=== PATIENT | male | born 1980 | race Hispanic/Latino ===

== ENCOUNTER 2017-12-31 16:13 | Emergency (ER) | payer OTHER | END 2017-12-31 17:10 | disposition home or self-care (01) | LOC: EDH 16:13 | DX: Z48.01 Encounter for change or removal of surgical wound dressing (principal) | CPT/HCPCS: 99281 ==

== ENCOUNTER 2019-04-11 20:24 | Emergency (ER) | payer OTHER ==
[2019-04-11] MEDS ORDERED: KETOROLAC TROMETHAMINE 60 MG/2 ML VIAL ONE (21:43)
[2019-04-11] MEDS ORDERED: TETANUS/DIPHTHERIA TOXOID [ADULT] 0.5 ML VIAL IM ONE (21:56)
== END 2019-04-11 22:00 | disposition home or self-care (01) ==
LOC: EDH 20:24
DX: S60.453A Superficial foreign body of left middle finger, initial encounter (principal); S61.243A Puncture wound with foreign body of left middle finger without damage to nail, initial encounter; W56.52XA Struck by other fish, initial encounter; Y93.89 Activity, other specified; Y92.89 Other specified places as the place of occurrence of the external cause; Y99.8 Other external cause status
CPT/HCPCS: 10120; 73130 ×2; 96372; 99284; J1885; 90714